=== PATIENT | female | born 1985 | race Caucasian/White ===

== ENCOUNTER 2018-07-28 16:19 | Emergency (ER) | payer BC ==
[~2018-07-28] VITALS: Ht 162.6 cm; Wt 89.5 kg
[2018-07-28 16:25] VITALS: Ht 162.6 cm; Wt 89.5 kg
[2018-07-28 18:17] VITALS: BP 130/88
== END 2018-07-28 18:16 | disposition home or self-care (01) ==
LOC: ED 16:19
DX: S61.211A Laceration without foreign body of left index finger without damage to nail, initial encounter (principal); Z88.0 Allergy status to penicillin; Z88.1 Allergy status to other antibiotic agents; W45.8XXA Other foreign body or object entering through skin, initial encounter; Y93.89 Activity, other specified; Y92.89 Other specified places as the place of occurrence of the external cause; Y99.8 Other external cause status
CPT/HCPCS: 90715; A4570; J2001

== ENCOUNTER 2018-07-30 10:32 | Emergency (ER) | payer BC ==
[~2018-07-30] VITALS: Ht 162.6 cm; Wt 90.7 kg
[2018-07-30 10:59] VITALS: Ht 162.6 cm; Wt 90.7 kg
[2018-07-30 11:48] VITALS: BP 140/80
== END 2018-07-30 11:48 | disposition home or self-care (01) ==
LOC: ED 10:32
DX: S61.211D Laceration without foreign body of left index finger without damage to nail, subsequent encounter (principal); X58.XXXD Exposure to other specified factors, subsequent encounter; Z88.0 Allergy status to penicillin; Z88.1 Allergy status to other antibiotic agents